=== PATIENT | female | born 1980 | race Caucasian/White ===

== ENCOUNTER 2018-03-16 23:41 | Emergency (ER) | payer OTHER ==
[~2018-03-16] VITALS: Ht 167.6 cm; Wt 59.0 kg
[~2018-03-16 23:41] MED LIST: IBUPROFEN PO; PRENATAL VITAM1 EAC2 PO; TYLENOL325 MG PO; ZYRTEC10 MG PO
--- NOTE | 2018-03-17 23:18 | EKG ---
[facility] [address] [facility] [place] [address] Signed Sinus tachycardia Nonspecific ST abnormality Abnormal ECG No previous ECGs available Confirmed by DANTE SALGADO MD ([id number] on 03/17/2018 11:18:24 PM Electronically Signed By: DANTE SALGADO MD 03/17/18 2318 PATIENT NAME: GABRIEL GIL Electrocardiogram DATE OF : 84 PHYSICIAN: DANTE SALGADO MD REPORT #: [id number] REPORT IS CONFIDENTIAL AND NOT TO BE RELEASED WITHOUT AUTHORIZATION
== END 2018-03-17 02:41 | disposition home or self-care (01) ==
LOC: ED 23:41
DX: R00.2 Palpitations (principal); Z88.0 Allergy status to penicillin; Z79.899 Other long term (current) drug therapy
CPT/HCPCS: 71045; 80053; 84443; 84484; 85025; 93005; 93010; 99285-25